=== PATIENT | male | born 2000 | race Caucasian/White ===

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

== ENCOUNTER 2024-06-30 15:33 | Emergency (ER) | payer MEDICAID, SELFPAY ==
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
[2024-06-30 15:41] VITALS: BP 156/91; PULSE 78; RESP 18; TEMP 36.6; O2SAT 98; BMI 21.3
--- OUTSIDE RECORDS SUMMARY | 2024-06-30 18:03 | XMS_ITS | Clinical Summary ---
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 Phone Bettie Clinton MD Primary Care Provider Allergies No known active allergies Medications No known medications Active Problems Problem Noted Date Diagnosed Date Closed nondisplaced fracture of second cervical vertebra with routine healing 02/12/2024 Assessment & Plan (02/24/2024 4:14 PM EST): On 02/10/24, doing well on C-collar, no neurological deficit at this time Continue Apap/Ibuprofen for pain Advised to continue C-collar until fu with neurosurgery on Feb Sleep flat on his back, use pillows to keep him in straight line Seek ED immediately if he suddenly develops worsening neck pain, arm numbness or weakness, nausea or severe SOSA Avoid recreational substance use or ETOH. Denies any need for mental health services, feels safe at home Assessment & Plan (02/12/2024 4:55 PM EST): On 02/10/24, doing well on C-collar, no neurological deficit at this time Advised to continue C-collar for at least 3-4w or until fu with neurosurgery or his PCP. Avoid neck movs, he should use pillows to sleep. Take Tylenol or Ibuprofen prn pain, tramadol 25-50 mg prn severe pain, caution with constipation, sedation, avoid driving. Advised to go to ED immediately if he suddenly develops worsening neck pain, arms numbness or weakness, nausea or severe SOSA. Avoid recreational substance use or ETOH. Encounters Date Type Department Care Team Description 06/26/2024 Telephone [facility] [address] [place] [address] Bettie Clinton MD Recall 05/31/2024 Population Health Risk Score [facility] () [address] [id number] Provider, Population Health Generic from Last 3 Months Social History Tobacco Use Types Packs/Day Years Used Date Smoking Tobacco: Never Passive Smoke Exposure: Never Smokeless Tobacco: Current Tobacco Cessation:Ready to Q uit: Not Asked; Counseling Given: Not Answered Alcohol Use Standard Drinks/Week Comments Yes 0 (1 standard drink = 0.6 oz pur e alcohol) Depression Answer Date Recorded Patient Health Questionnaire-9 Score 3 02/23/2024 Patient Health Questionnaire-9 Score 3 02/23/2024 Last PHQ-9: Questionnaire Data Not on file 1 04/25/2023 Housing Stability Answer Date Recorded What is your housing situation today? I have demetra anthony 02/23/[address] you li ve. Do you have problems with any of the following? None of the above 02/23/2024 Food Insecurity Answer Date Recorded Within the past 12 months, y ou worried that your food would run out before you got money to buy more: Never True 02/23/2024 Within the past 12 months,th e food you bought just didn't last and you didn't have enough money to get more: Never True 08/2023 Transportation Answer Date Recorded In the past 12 months, has l ack of transportation kept you from medical appts, meetings, work or from getting things needed for daily living? No 02/23/2024 Utilities Answer Date Recorded In the past 12 months, has t he electric, gas, oil or water company threatened to shut off services in your home? No 02/23/2024 Depression Answer Date Recorded Patient Health Questionnaire-2 Score 1 02/23/2024 Internet Access Answer Date Recorded Internet Access Q1 Yes 02/23/2024 Internet Access Q2 Not on file 02/23/2024 Sex and Gender Information Value Date Recorded Sex Assigned at Male 01/17/2022 10:17 AM EDT Legal Sex Male 10:17 AM EDT Gender Identity Male 01/17/2022 10:17 AM EDT Sexual Orientation Choose not to disclose 2021 10:17 AM EDT Last Filed Vital Signs Vital Sign Reading Time Taken Comments Blood Pressure 134/84 02/23/2024 10:14 AM EST Pulse 67 02/23/2024 10:14 AM EST Temperature 37 ??C (98.6 ??F) 02/23/2024 10:14 AM EST Respiratory Rate 18 02/23/2024 10:14 AM EST Oxygen Saturation 98% 02/23/2024 10:14 AM EST Inhaled Oxygen Concentration - - Weight 61.7 kg (136 lb) 02/23/2024 10:14 AM EST Height 172.7 cm (5' 8 ) 02/23/2024 10:14 AM EST Body Mass Index 20.68 02/23/2024 10:14 AM EST Plan of Treatment Health Maintenance Due Date Last Done Comments Chlamydia and Gonorrhea Screening 2002 HIV Screening 2002 Lipid Panel 2002 Hepatitis A Vaccines (2 of 2 - 2-dose series) 06/10/2014 12/11/2013 Alcohol/Substance Use Screening 2014 Family Planning (PISQ) 2017 Hepatitis C Screening 2020 Pneumococcal Vaccine: Pediatrics (0 to 5 Years) and At-Risk Patients (6 to 49) Years) (1 of 2 - PCV) 2021 09/07/2004, 01/24/2003, 2002, Additional history exists COVID-19 Vaccine ( - season) 2023 Influenza Vaccine (#1) 2023 , 06/12/2017, 12/07/2015, Additional history exists DTaP/Tdap/Td Vaccines (7 - Td or Tdap) 12/12/2023 12/11/2013, 10/16/2006, 10/28/2003, Additional history exists Depression Screening 02/22/2025 02/23/2024, 02/23/20 24 SDOH Screening 02/22/2025 02/23/2024 Tobacco Screening 02/22/2025 02/23/2024 Zoster Vaccines (1 of 2) 2052 RSV Patients and Patients Aged 60 years or older (1 - 1-dose 75+ series) 2077 Hepatitis B Vaccines Completed 04/22/2003, 2002, 2002 HIB Vaccines Completed 10/28/2003, 09/2002, 2002, Additional history exists IPV Vaccines Completed 10/16/2006, 05/2003, 2002, Additional history exists HPV Vaccines Completed 12/07/2015, 07/2015, 01/19/2015 Meningococcal Vaccine Completed 08/22/2018, 014 RSV under 20 months Aged Out No longe r eligible based on patient's age to complete this topic Rotavirus Vaccines Aged Out No longer eligible based on patient's age to complete this topic Insurance [employer] [facility] Care Teams Photogravure Press Operator Relationship Specialty Start Date End Date Bettie Clinton MD [address] [place] [address] PCP - General Family Medicine 02/23/24
== END 2024-06-30 18:00 | disposition left against medical advice (07) ==
PROVIDERS: Emergency Provider Emergency Medicine; PCP Pediatrics
DX: S61.012A Laceration without foreign body of left thumb without damage to nail, initial encounter (principal); W25.XXXA Contact with sharp glass, initial encounter; Y93.9 Activity, unspecified; Y92.9 Unspecified place or not applicable; Y99.9 Unspecified external cause status; Z53.21 Procedure and treatment not carried out due to patient leaving prior to being seen by health care provider
CPT/HCPCS: 99281